=== PATIENT | male | born 1970 | race Caucasian/White ===

== ENCOUNTER 2016-09-29 03:36 | Emergency (ER) | payer OTHER, MEDICAID ==
[2016-09-29 03:46] VITALS: BP 134/86; PULSE 90; RESP 18; TEMP 98.1; O2SAT 95
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
== END 2016-09-29 04:17 | disposition home or self-care (01) ==
DX: S29.9XXA Unspecified injury of thorax, initial encounter (principal); F17.200 Nicotine dependence, unspecified, uncomplicated; V66 Occupant of heavy transport vehicle injured in collision with other nonmotor vehicle; Y92.410 Unspecified street and highway as the place of occurrence of the external cause

== ENCOUNTER 2016-10-10 16:19 | Emergency (ER) | payer OTHER, MEDICAID ==
[2016-10-10 16:33] VITALS: BP 158/96; PULSE 96; RESP 16; TEMP 97.9; O2SAT 94
[2016-10-10] MEDS ORDERED: NS 1,000 ML IV ONE (16:42)
[2016-10-10] MEDS ORDERED: METOCLOPRAMIDE 10 MG/2 ML VIAL IVP ONE (16:42)
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
== END 2016-10-10 17:50 | disposition home or self-care (01) ==
DX: G44.309 Post-traumatic headache, unspecified, not intractable (principal); F07.81 Postconcussional syndrome; V89.2XXD Person injured in unspecified motor-vehicle accident, traffic, subsequent encounter
CPT/HCPCS: 96374; J1200; J2765